=== PATIENT | female | born 1945 | race Caucasian/White ===

== ENCOUNTER 2017-04-21 15:46 | Inpatient (IN) | payer MEDICARE, BC ==
[~2017-04-21] VITALS: Ht 167.6 cm; Wt 54.4 kg
[2017-05-10] VITALS (9 sets, daily range): BP systolic 94–109; BP diastolic 42–47; PULSE 62–81; TEMP 97.6–98.1
[2017-05-11 00:52] VITALS: BP 95/44; PULSE 66; TEMP 98.3
[2017-05-11 04:42] VITALS: BP 102/43; PULSE 69; TEMP 98
[2017-05-11 06:22] LABS: CALCIUM 8.3 mg/dL (8.4-10.2); CREATININE, serum 0.68 mg/dL (0.52-1.25); MAGNESIUM 1.8 mg/dL (1.6-2.3); PHOSPHOROUS 2.5 mg/dL (2.5-4.5); POTASSIUM 4.3 mmol/L (3.4-5.0)
[2017-05-11 07:28] LABS: HEMATOCRIT 35.7 % (37.0-47.0); HEMOGLOBIN 11.9 g/dl (12.5-16.0)
[2017-05-11 09:30] VITALS: BP 106/48; PULSE 77; TEMP 98.2
== END 2017-05-11 13:17 | disposition home or self-care (01) | DRG 373 ==
LOC: INPTSU 05-10 06:49 → SURG 05-10 09:45
PROVIDERS: Surgery
PROC: 8E0W4CZ Robotic Assisted Procedure of Trunk Region, Percutaneous Endoscopic Approach (ICD-10-PCS; 2017-05-10)
PROC: 0WBH4ZX Excision of Retroperitoneum, Percutaneous Endoscopic Approach, Diagnostic (ICD-10-PCS; principal; 2017-05-10 09:45)
DX: K68.9 Other disorders of retroperitoneum (principal)
CPT/HCPCS: A4315; A9284; J0360; J0690; J1100; J1885; J2270; J2405; J2704; J3010; J7120

== ENCOUNTER 2017-07-12 06:50 | Day surgery (SDC) | payer MEDICARE, BC ==
[2017-07-12] VITALS (7 sets, daily range): BP systolic 101–114; BP diastolic 45–72; PULSE 73–89; TEMP 97.5
[~2017-07-12] VITALS: Ht 167.6 cm; Wt 55.1 kg
[2017-07-12] MEDS ORDERED: DOXYCYCLINE HY100 MG PO (07:53)
== END 2017-07-12 11:22 | disposition short-term general hospital (02) ==
LOC: SDCO 06:50
DX: J20.9 Acute bronchitis, unspecified (principal); Z80.3 Family history of malignant neoplasm of breast; Z82.49 Family history of ischemic heart disease and other diseases of the circulatory system
CPT/HCPCS: J2704; J7120

== ENCOUNTER → 2017-07-20 | Outpatient (CLI) | payer MEDICARE, BC ==
[~2017-07-20] MED LIST: DOXYCYCLINE HY100 MG PO
== END ==
LOC: COL.VAS 14:07
DX: I82.812 Embolism and thrombosis of superficial veins of left lower extremity (principal); C34.31 Malignant neoplasm of lower lobe, right bronchus or lung

== ENCOUNTER 2017-12-15 07:41 | Outpatient (CLI) | payer MEDICARE, BC ==
[~2017-12-15] VITALS: Ht 167.6 cm; Wt 50.0 kg
[2017-12-15] VITALS (9 sets, daily range): BP systolic 106–127; BP diastolic 65–70; PULSE 84–91
[~2017-12-15 07:41] MED LIST changes: +ANTIVERT 25MG25 MG PO
[2017-12-15 09:57] LABS: GLUCOSE,CSF 46 mg/dL (40-70); TOTAL PROTEIN,CSF 54 mg/dL (15-45)
[2017-12-15 10:48] LABS: CSF APPEARANCE CLEAR; CSF COLOR COLORLESS; CSF MONONUCLEAR 56 % (70-100); CSF POLYMORPHONUCLEAR 44 % (0-6); CSF RBC 264 /mm3 (0-0)
== END 2017-12-15 12:44 | disposition home or self-care (01) ==
LOC: COL.RAD 07:41
PROVIDERS: Internal Medicine
DX: C34.31 Malignant neoplasm of lower lobe, right bronchus or lung (principal)
CPT/HCPCS: A9585

== ENCOUNTER 2017-12-27 13:39 | Inpatient (IN) | payer MEDICARE, BC ==
[~2017-12-27] VITALS: Ht 167.6 cm; Wt 46.6 kg
[~2017-12-27 13:39] MED LIST changes: +DECADRON 4MG TAB4 MG PO; +MIRALAX PA17 GM/Dose PO
[2017-12-27 14:49] LABS: HEMOGLOBIN 11.9 g/dl (12.5-16.0); MEAN CELL VOLUME 94 fl (80.0-100.0); MEAN CORPUSCULAR HEMOGLOBIN 33 pg (27.0-31.0); MEAN CORPUSCULAR HGB CONC 35 g/dl (33.0-37.0); MEAN PLATELET VOLUME 10.8 fl (7.4-10.4); PLATELET COUNT 78 K/mm3 (130-400); RED BLOOD COUNT 3.59 M/mm3 (4.10-5.30); REDCELL DISTRIBUTION WIDTH-CV 19.1 % (11.5-14.5)
[2017-12-27 14:50] LABS: HEMATOCRIT 33.7 % (37.0-47.0)
[2017-12-27 14:55] LABS: PROTHROMBIN TIME 11.9 SECONDS (9.7-12.8)
[2017-12-27 14:57] LABS: PARTIAL THROMBOPLASTIN TIME 25.3 SECONDS (26.0-37.0)
[2017-12-27 15:20] LABS: ANISOCYTOSIS 1+; BAND 1 % (0-10); LYMPHOCYTE 8 % (20.0-51.0); NEUTROPHILS 91 % (42.0-75.2); PLATELET ESTIMATE DECREASED (NORMAL)
[2017-12-27 15:47] LABS: COLLECTION METHOD CLEAN CATCH
[2017-12-27 15:49] LABS: ALBUMIN 3.1 gm/dL (3.5-5.0); BILIRUBIN,TOTAL 0.9 mg/dL (0.0-1.0); C-REACTIVE PROTEIN 1.5 mg/dL (0.0-0.9); CALCIUM 8.2 mg/dL (8.4-10.2); CREATININE, serum 0.43 mg/dL (0.52-1.25); POTASSIUM 3.7 mmol/L (3.4-5.0); TOTAL PROTEIN 6.2 gm/dL (6.4-8.2)
[2017-12-27 15:53] LABS: MUCOUS Present /lpf; PH 6 (5-8); SQUAMOUS EPITHELIAL 0-2 /hpf; URINE APPEARANCE Clear; URINE BACTERIA None Seen /hpf; URINE BILIRUBIN Negative (NEGATIVE); URINE BLOOD Negative (NEGATIVE); URINE COLOR Yellow; URINE GLUCOSE Negative (NEGATIVE); URINE KETONE 1+ (NEGATIVE); URINE LEUKOCYTE ESTERASE Negative (NEGATIVE); URINE NITRATE Negative (NEGATIVE); URINE PROTEIN(semi-quant) Negative (NEGATIVE); URINE RBC 0-2 /hpf; URINE UROBILINOGEN >=4.0 mg/dL (NEGATIVE)
[2017-12-27 20:19] VITALS: BP 98/51; PULSE 81; TEMP 98.4
[2017-12-28] VITALS (8 sets, daily range): BP systolic 90–139; BP diastolic 47–83; PULSE 49–88; TEMP 97.3–98.7
[2017-12-28 06:39] LABS: GRAN # 3.8 (1.4-6.5); GRAN % 81.9 % (42.2-75.2); HEMOGLOBIN 10.6 g/dl (12.5-16.0); LYMPH # 0.4 (1.2-3.4); LYMPH % 8.3 % (20.0-51.0); MEAN CORPUSCULAR HEMOGLOBIN 33 pg (27.0-31.0); MEAN CORPUSCULAR HGB CONC 34 g/dl (33.0-37.0); MEAN PLATELET VOLUME 10.5 fl (7.4-10.4); MONO # 0.4 (0.1-0.6); MONO % 9.2 % (1.7-9.3); PLATELET COUNT 72 K/mm3 (130-400); RED BLOOD COUNT 3.18 M/mm3 (4.10-5.30); REDCELL DISTRIBUTION WIDTH-CV 19.3 % (11.5-14.5)
[2017-12-28 06:47] LABS: HEMATOCRIT 31.4 % (37.0-47.0); MEAN CELL VOLUME 99 fl (80.0-100.0)
[2017-12-28 09:27] LABS: GLUCOSE,CSF 38 mg/dL (40-70); TOTAL PROTEIN,CSF 70 mg/dL (15-45)
[2017-12-28 10:01] LABS: CSF APPEARANCE HAZY; CSF COLOR COLORLESS; CSF MONONUCLEAR 69 % (70-100); CSF POLYMORPHONUCLEAR 31 % (0-6); CSF RBC 296 /mm3 (0-0)
[2017-12-29 03:14] VITALS: BP 121/58; PULSE 93
[2017-12-29 07:33] LABS: BASO % 0.1 % (0.0-2.0); EOS % 0.1 % (0-4.0); GRAN % 88.2 % (42.2-75.2); LYMPH # 0.4 (1.2-3.4); LYMPH % 4.6 % (20.0-51.0); MEAN CELL VOLUME 97 fl (80.0-100.0); MEAN CORPUSCULAR HEMOGLOBIN 33 pg (27.0-31.0); MEAN CORPUSCULAR HGB CONC 34 g/dl (33.0-37.0); MEAN PLATELET VOLUME 11.1 fl (7.4-10.4); MONO # 0.5 (0.1-0.6); MONO % 6.6 % (1.7-9.3); PLATELET COUNT 81 K/mm3 (130-400); RED BLOOD COUNT 3.36 M/mm3 (4.10-5.30); REDCELL DISTRIBUTION WIDTH-CV 19.2 % (11.5-14.5)
[2017-12-29 07:56] LABS: CALCIUM 7.2 mg/dL (8.4-10.2); CREATININE, serum 0.47 mg/dL (0.52-1.25); POTASSIUM 3.2 mmol/L (3.4-5.0)
[2017-12-29 07:57] LABS: HEMATOCRIT 32.6 % (37.0-47.0)
[2017-12-29 08:05] VITALS: BP 132/78; PULSE 94; TEMP 97.5
[2017-12-29 10:49] VITALS: BP 144/69; PULSE 101; TEMP 97.7
[2017-12-29 15:30] VITALS: BP 120/61; PULSE 96; TEMP 98.1
[2017-12-29 19:40] VITALS: BP 108/51; PULSE 99; TEMP 98.1
[2017-12-29 23:39] VITALS: BP 125/64; PULSE 97; TEMP 97
[2017-12-30 03:28] VITALS: BP 121/64; PULSE 95; TEMP 98.2
[2017-12-30 07:25] LABS: BASO % 0.2 % (0.0-2.0); EOS # 0.1 (0.0-0.7); EOS % 1.4 % (0-4.0); GRAN # 4.9 (1.4-6.5); GRAN % 83.8 % (42.2-75.2); HEMOGLOBIN 11.1 g/dl (12.5-16.0); LYMPH # 0.3 (1.2-3.4); LYMPH % 5.2 % (20.0-51.0); MEAN CELL VOLUME 95 fl (80.0-100.0); MEAN CORPUSCULAR HEMOGLOBIN 33 pg (27.0-31.0); MEAN CORPUSCULAR HGB CONC 35 g/dl (33.0-37.0); MEAN PLATELET VOLUME 10.7 fl (7.4-10.4); MONO # 0.5 (0.1-0.6); MONO % 9.2 % (1.7-9.3); PLATELET COUNT 80 K/mm3 (130-400); RED BLOOD COUNT 3.33 M/mm3 (4.10-5.30); REDCELL DISTRIBUTION WIDTH-CV 18.5 % (11.5-14.5)
[2017-12-30 07:30] LABS: HEMATOCRIT 31.6 % (37.0-47.0)
[2017-12-30 07:41] LABS: CALCIUM 7.3 mg/dL (8.4-10.2); CREATININE, serum 0.36 mg/dL (0.52-1.25); MAGNESIUM 1.9 mg/dL (1.6-2.3)
[2017-12-30 08:07] LABS: POTASSIUM 2.9 mmol/L (3.4-5.0)
[2017-12-30 08:16] VITALS: BP 120/59; PULSE 91; TEMP 98
[2017-12-30 12:00] VITALS: BP 155/74; PULSE 91; TEMP 98.1
[2017-12-30] MEDS ORDERED: ROXANOL 20MG20 MG/ML PO (12:31)
[2017-12-30 13:19] VITALS: BP 155/74; PULSE 91; TEMP 98.1
== END 2017-12-30 14:00 | disposition hospice, inpatient (51) | DRG 640 ==
LOC: COL.ER 13:39 → MEDICAL 17:01
PROVIDERS: Emergency Medicine; Hospitalist
PROC: 009U3ZX Drainage of Spinal Canal, Percutaneous Approach, Diagnostic (ICD-10-PCS; principal; 2017-12-28)
DX: E86.0 Dehydration (principal); E43 Unspecified severe protein-calorie malnutrition; R64 Cachexia; Z66 Do not resuscitate; Z51.5 Encounter for palliative care; Z68.1 Body mass index [BMI] 19.9 or less, adult; C34.31 Malignant neoplasm of lower lobe, right bronchus or lung; C79.40 Secondary malignant neoplasm of unspecified part of nervous system; C79.51 Secondary malignant neoplasm of bone; E16.2 Hypoglycemia, unspecified; E87.6 Hypokalemia; D69.59 Other secondary thrombocytopenia
CPT/HCPCS: 99223-AI; 99233-AI; 99239; J1100; J1644; J3480; J7030; J7070; J7121; Q9967